=== PATIENT | male | born 1970 | race Caucasian/White ===

== ENCOUNTER 2016-08-26 07:41 | Emergency (ER) | payer MEDICAID ==
[~2016-08-26] VITALS: Ht 180.3 cm; Wt 88.5 kg
[~2016-08-26 07:41] MED LIST: BACTRIM DS 8001 TA1 PO; CIPRO 500MG TA500 MG PO; FLEXERIL10 MG PO; FLOMAX 0.4MG C0.4 MG PO; IBUPROFEN400 MG PO; IBUPROFEN800 MG PO; LODINE400 MG PO; LOMOTIL 0.025 M1 TAB PO; MEDROL 4MG. DOSE4 MG PO; NAPROSYN 500MG500 MG PO; NOMEDS *; NOMEDS XX; PREDNISONE 20MG20 MG PO; PRILOSEC OTC20 MG PO; TESSALON PERLE100 MG PO; ZOFRAN ODT4 MG PO; ZOFRAN4 MG PO
--- NOTE | 2016-08-26 08:11 | Emergency Room Report ---
History of Present Illness Time Seen by MD Redd Presenting Problem in Triage Pt arrived:Walked Presenting Problem:PT REPORTS "MIGRAINE HEADACHE" X2 WEEKS THAT HAS WORSENED THIS MORNING. PT REPORTS PAIN IS MOSTLY ON L SIDE OF HEAD, PT REPORTS NAUSEA. 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 N Clinical Suspician of Infection? N Mental Status: 1 - Regular (Normal Baseline) Sepsis Risk:Low Sepsis Risk Have you (or family members/close friends) recently traveled outside the [place]? N If Yes, where/when: Have you had exposure to infectious disease within the past month? N TB? Other? Specify: Source patient, RN notes reviewed Exam Limitations no limitations Comment Pt comes to the ED with a headache for the past 2 weeks that has gotten progressively worse. Mostly on the left side of his head from the frontal area to the occipital area and says it feels like "someone hitting me in the head with a baseball bat". He has not been running any fever but today he is nauseated and vomiting. He Smokes 1 1/2 ppd but denies ETOH and Drugs off the street. He also is not taking any meds on a regular basis and has no history of hypertension but BP today is 178/112 ...he is afebrile and heart rate is 89 Cardiac Chest Pain Chest pain indicative of cardiac No ALLERGIES Coded Allergies: No Known Allergies (03/22/15) Home Medications Reported Medications No Known Home Medications History Medical History General CAD? No Angina: No DC: No Hypertension? No Hyperlipidemia? No CHF? No DVT? No PE? No COPD? No Asthma? No Anemia? No GERD? No Gastric ulcers? No GI Bleed? No Hernia? No Thyroid Problems? No Hypothyroidism? No CVA? No Seizures? No Diabetes? No Renal Insuffiency? No End Stage Renal Disease? No UTI? No Stones? Yes BPH? No GB Disease: No Nephritic Syndrome? No Asplenia? No Hepatitis? No Sickle Cell Disease? No Arthritis? No Migraines? No Cataracts? No Glaucoma? No MRSA? No HIV? No TB? No Anxiety? No Depression? No Cancer? No More? No Immunization Hx DT/Tetanus 1-4 Years Ago Surgical Hx Previous Surgery?Y HERNIA- ABD RENAL CALCULI EXTRACTION Social History Smoking Hx Smoker: Current Every Day Smoker Tobacco: Yes Type Cigarettes Packs/day < 1 Pack Alcohol Alcohol: Yes Review of Systems All Other Systems Reviewed and Negative Constitutional see HPI Gastrointestinal see HPI Psychiatric/Neurological see HPI, headache Physical Exam Vital Signs Vital Signs Date Time Temp Pulse Resp B/P Pulse O2 O2 Flow FiO2 Ox Delivery Rate 08/26 0902 90 20 147/83 97 08/26 0821 91 20 162/99 97 08/26 0817 20 08/26 0747 97.5 89 18 178/112 96 General Appearance moderate distress Eye Exam - bilateral eye normal exam Ear, Nose, Throat normal ENT inspection Neck supple, but pt complains of pain in neck with movement Respiratory Status No: respiratory distress. Lung Sounds bilateral: normal breath sounds. 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 Yes Silverio was queried for this patient? Yes Reference #: [id number] Results/Orders Laboratory Tests 08/26/16 0810: Sodium 135 L, Potassium 3.4 L, Chloride 100, Carbon Dioxide 29, BUN 12, Creatinine 1.5 H, Estimated Creat Clear 79, Estimated GFR (MDRD) 51, Glucose 107 H, Calcium 9.1, Magnesium 1.9, Total Bilirubin 0.8, AST 22, ALT 15, Alkaline Phosphatase 111, Total Protein 7.4, Albumin 3.7, Globulin 3.7 H, Albumin/Globulin Ratio 1.0 L, WBC 11.4 H, RBC 5.68, Hgb 17.1, Hct 51.1, MCV 89.9, RDW 13.8, Plt Count 309, MPV 6.0 L, Gran % 67.6, Gran # 7.7, Lymphocytes % 20.3, Monocytes % 6.5, Eosinophils % 4.6, Basophils % 1.1, Lymphocytes # 2.3, Monocytes # 0.7, Eosinophils # 0.5 H, Basophils # 0.1, PUBS MCHC 33.4, MCH 30.0 Current Medication Orders Sig/Emelia Start time Last Medication Dose Route Stop Time Status Admin Sodium Chloride 1,000 ML .STK-MED ONE 08/26 0926 DC IV Ceftriaxone Sodium 0 .STK-MED ONE 08/26 0925 DC IV Sodium Chloride 50 ML .STK-MED ONE 08/26 0924 DC IV Diphenhydramine HCl 25 MG ONCE ONE 08/26 0815 DC IV 08/26 0816 Hydralazine HCl 20 MG ONCE ONE 08/26 0815 DC 08/26 IV 08/26 0816 0817 Ketorolac 30 MG ONCE ONE 08/26 0815 DC 08/26 Tromethamine IV 08/26 0816 0817 Ketorolac 0 .STK-MED ONE 08/26 0815 DC Tromethamine .ROUTE Ondansetron HCl 4 MG ONCE ONE 08/26 0815 DC 08/26 IV 08/26 0816 0817 Ondansetron HCl 0 .STK-MED ONE 08/26 0815 DC .ROUTE Sodium Chloride 1,000 ML .Q1H1M 08/26 0815 DC 08/26 IV 08/26 0915 0817 Sodium Chloride 10 ML PRN PRN 08/26 0815 AC IV 08/27 0804 Sodium Chloride 1,000 ML .Q4H 08/26 0815 AC IV 08/26 1214 Sodium Chloride 10 ML PRN PRN 08/26 0815 AC IV 08/27 0804 Sodium Chloride 10 ML PRN PRN 08/26 0815 AC IV 08/27 0813 Sodium Chloride 1,000 ML .STK-MED ONE 08/26 0815 DC IV Hydralazine HCl 0 .STK-MED ONE 08/26 0814 DC .ROUTE Orders Procedure Date/time Status DIET-NOTHING BY MOUTH 08/26 L Active IV SALINE LOCK 08/[address] HEAD REQ 08/26 08 Complete URINALYSIS/COMPLETE 08/26 08 Active MAGNESIUM 08/26 08 Complete LACTIC ACID 08/26 805 Active DRUG ABUSE SCREEN (10) 08/26 08 Active CBC WITH AUTO DIFF 08/26 805 Complete CHEM 12 PROFILE 08/26 805 Complete Departure Departure Time of Disposition 0923 Disposition DC Home or Self Care(routine) Clinical Impression Primary Impression: Acute ethmoidal sinusitis Qualifiers: Recurrence: not specified as recurrent Qualified Code: J01.20 - Acute ethmoidal sinusitis, unspecified Secondary Impressions: Headache Qualifiers: Headache type: unspecified Headache chronicity pattern: acute headache Intractability: not intractable Qualified Code: R51 - Headache Hypertension Qualifiers: Hypertension type: essential hypertension Qualified Code: I10 - Essential (primary) hypertension Condition STABLE Referrals ALBERTO COLLADO (Family): 3 Days-Call Office Patient Instructions DI for Sinus Headache, High Blood Pressure (Hypertension) ( Alternative Therapy), Sinus Headache Additional Instructions Use medicines as directed and keep a record of BP over the next week and followup with PCP to see if you need to start BP meds. Return to the ED as needed. Discharge Counseling Counseled pt/family regarding diagnosis, test results, medications/RX, home care, follow up needs Prescriptions Current Visit Scripts CEFDINIR (Cefdinir) 300 MG PO DAILY #14 CAP Guaifenesin (Mucinex) 600 MG PO BID #40 TAB BUTALB/ACETAMINOPHEN/CAFFEINE (Fioricet 50-300-40 MG Capsule) 1 CAP PO Q4HP PRN headache #30 CAP ED Critical Care Critical Care No If Critical Care minutes are documented, the time involved in the performance of seperately reportable procedures was not counted toward critical care time documented. I directly delivered medical care to this critically ill and/or injured patient. Timely evaluation and treatment was necessary to address the significant organ system(s) dysfunction present in this patient. at 7802
[2016-08-26 08:19] LABS: HEMOGLOBIN 17.1 g/dL (14.1-18.0); LYMPH # 2.3 K/mm3 (0.7-4.5); LYMPH % 20.3 % (10-50)
--- NOTE | 2016-08-26 09:21 | RADIOLOGY REPORT PS360 ---
CT HEAD W/O CONTRAST COMPARISON: None HISTORY: Severe left-sided headache for 2 weeks TECHNIQUE: Multiaxial scans obtained from base skull to the vertex and were performed without IV contrast. FINDINGS: The base of the skull appears normal except for minimal inflammatory changes of the ethmoid sinuses. The ventricular system is normal. There is no ischemic infarct or bleed and there are no extra-axial fluid collections. Bony calvarium appears intact. IMPRESSION: Minor inflammatory changes of the ethmoid sinuses likely acute otherwise negative noncontrast CT scan of brain.
--- NOTE | 2016-08-26 09:21 | RADIOLOGY REPORT PS360 ---
CHEST(2 VIEWS-NOT PORTABLE) COMPARISON: Portable upright chest 02/06/2014 HISTORY: Shortness of breath TECHNIQUE: AP and lateral upright chest in wheelchair FINDINGS: The lung joyner are well expanded and appear clear of infiltrate. The cardiac silhouette and vascularity are normal and the costophrenic angles are clear. IMPRESSION: Negative AP and lateral chest
[2016-08-26] MEDS ORDERED: CEFDINIR 300MG300 MG PO (09:27)
[2016-08-26] MEDS ORDERED: MUCINEX ER600 MG PO (09:27)
[2016-08-26] MEDS ORDERED: FIORICET1 CAP PO (09:27)
[2016-08-26 10:15] VITALS: BP 157/93
== END 2016-08-26 10:15 | disposition home or self-care (01) ==
LOC: ER 07:41
PROVIDERS: General Practice
DX: J01.20 Acute ethmoidal sinusitis, unspecified (principal); R51 Headache; I10 Essential (primary) hypertension; Z72.0 Tobacco use
CPT/HCPCS: J2405

== ENCOUNTER 2016-09-06 19:16 | Emergency (ER) | payer MEDICAID ==
[~2016-09-06] VITALS: Ht 180.3 cm; Wt 88.5 kg
[~2016-09-06 19:16] MED LIST changes: +CEFDINIR 300MG300 MG PO; +FIORICET1 CAP PO; +MUCINEX ER600 MG PO
--- NOTE | 2016-09-06 19:47 | Emergency Room Report ---
History of Present Illness Time Seen by 1924 Presenting Problem in Triage Pt arrived:Walked Presenting Problem:pt states he is having trouble breathing and a headache. 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 Y Clinical Suspician of Infection? N Mental Status: 1 - Regular (Normal Baseline) Sepsis Risk:Possible Sepsis Risk Have you (or family members/close friends) recently traveled outside the [place]? N If Yes, where/when: Have you had exposure to infectious disease within the past month? TB? Other? Specify: Patient seen in ED August 26 with headache for several weeks and sinus congestion, CT of brain showed some inflammatory changes sinuses, neg acute findings. CXR negative. He continues to have a bronchitic cough, worse at night, and is no better on Fioricet and cephalosporin. No elizabeth fever. No vomiting. States cough is worse at night, and keeps him up. He states he feels SOB and that this is worse when he lies down at night, which makes him start coughing uncontrollably, then his head starts to hurt. No syncope or CP, no calf pain. ALLERGIES Coded Allergies: No Known Allergies (03/22/15) Home Medications Active Scripts CEFDINIR (Cefdinir) 300 MG PO DAILY #14 CAP Prov: 08/26/16 BUTALB/ACETAMINOPHEN/CAFFEINE (Fioricet 50-300-40 MG Capsule) 1 CAP PO Q4HP PRN headache #30 CAP Prov: 08/26/16 (Sukh MICHAUD, Elidia De León) History Medical History General CAD? No Angina: No [place]: No Hypertension? No Hyperlipidemia? No CHF? No DVT? No PE? No COPD? No Asthma? No Anemia? No GERD? No Gastric ulcers? No GI Bleed? No Hernia? No Thyroid Problems? No Hypothyroidism? No CVA? No Seizures? No Diabetes? No Renal Insuffiency? No End Stage Renal Disease? No UTI? No Stones? Yes BPH? No GB Disease: No Nephritic Syndrome? No Asplenia? No Hepatitis? No Sickle Cell Disease? No Arthritis? No Migraines? No Cataracts? No Glaucoma? No MRSA? No HIV? No TB? No Anxiety? No Depression? No Cancer? No More? No Immunization Hx DT/Tetanus 1-4 Years Ago Surgical Hx Previous Surgery?Y HERNIA- ABD RENAL CALCULI EXTRACTION Social History Smoking Hx Smoker: Current Every Day Smoker Tobacco: Yes Type Cigarettes Packs/day < 1 Pack Alcohol Alcohol: Yes (Sukh MICHAUD, Elidia De León) Review of Systems All Other Systems Reviewed and Negative Psychiatric/Neurological headache (Elidia Luz MD) Physical Exam Vital Signs Vital Signs Date Time Temp Pulse Resp B/P Pulse O2 O2 Flow FiO2 Ox Delivery Rate 09/06 2042 102 20 157/78 96 09/06 1954 20 09/06 192 99.1 105 20 168/84 96 09/06 1918 99.1 105 20 96 General Appearance normal appearance, WD/WN, no apparent distress Eye Exam - bilateral eye normal exam, bilateral eye PERRL, bilateral eye EOMI Ear, Nose, Throat hearing grossly normal, normal pharynx (no sinus pain), nasal congestion Neck normal inspection, non-tender, supple, full range of motion Respiratory Status Yes: trachea midline, chest symmetrical, non tender chest, non productive cough (bronchitic cough). No: respiratory distress, tender on palpation, use of accessory muscles, pain on inspiration, pain on expiration, productive cough. Lung Sounds bilateral: normal breath sounds, lungs clear. 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 No Results/Orders Laboratory Tests 09/06/162042: Lactic Acid 1.1, Chlamy pneum (TEM-PCR) NOT DETECTED, Adenovirus (PCR) NOT DETECTED, B. pertussis DNA (PCR) NOT DETECTED, Coronavirus OC43 (PCR) NOT DETECTED, Coronavirus HKU1 (PCR) NOT DETECTED, Coronavirus 229E (PCR) NOT DETECTED, Coronavirus NL63 (PCR) NOT DETECTED, Human Metapneumovir PCR NOT DETECTED, Influenza A (H1) PCR NOT DETECTED, Influ A (H1N1/09) PCR NOT DETECTED, Influenza A (H3) PCR NOT DETECTED, Influenza Type A (PCR) NOT DETECTED, Influenza Type B (PCR) NOT DETECTED, M. pneumoniae (PCR) NOT DETECTED, Parainfluenza 1 (PCR) NOT DETECTED, Parainfluenza 2 (PCR) NOT DETECTED, Parainfluenza 3 (PCR) NOT DETECTED, Parainfluenza 4 (PCR) NOT DETECTED, RSV (PCR ) NOT DETECTED, Entero/Rhino (PCR) NOT DETECTED 09/06/16 1950: Sodium 138, Potassium 2.9 *L, Chloride 101, Carbon Dioxide 27, BUN 13, Creatinine 1.6 H, Estimated Creat Clear 74, Estimated GFR (MDRD) 47, Glucose 140 H, Calcium 9.1, Total Bilirubin 0.6, AST 11 L, ALT 12, Alkaline Phosphatase 104, Total Protein 7.1, Albumin 3.1 L, Globulin 4.0 H, Albumin/ Globulin Ratio 0.8 L, WBC 12.7 H, RBC 5.05, Hgb 15.2, Hct 44.9, MCV 88.9, RDW 14.3, Plt Count 324, MPV 6.2 L, Gran % 79.0, Gran # 10.0 H, Lymphocytes % 12.0 , Monocytes % 5.8, Eosinophils % 2.6, Basophils % 0.6, Lymphocytes # 1.5, Monocytes # 0.7, Eosinophils # 0.3, Basophils # 0.1, PUBS MCHC 34.0, MCH 30.2 09/06/161929: Influenza Type A Ag NOT DETECTED, Influenza Type B Ag NOT DETECTED Current Medication Orders Sig/Emelia Start time Last Medication Dose Route Stop Time Status Admin Albuterol/Ipratropium 3 ML ONCE ONE 09/06 2129 DC 09/06 INH 09/06 Albuterol/Ipratropium 0 .STK-MED ONE 09/06 2126 DC INH Sodium Chloride 1,000 ML .STK-MED ONE 09/06 2041 DC IV Levofloxacin/Dextrose 150 ML .STK-MED ONE 09/06 2036 DC IV Potassium Chloride 0 .STK-MED ONE 09/06 2036 DC PO Levofloxacin/Dextrose 150 ML ONCE ONE 09/06 2029 DCr 09/06 IV 09/06 Potassium Chloride 40 MEQ ONCE ONE 09/06 2029 DC 09/06 PO 09/06 Ketorolac 30 MG ONCE ONE 09/07 1999 DC 09/06 Tromethamine IV 09/06 Methylprednisolone 125 MG ONCE ONE 09/07 1999 DC 09/06 Sodium Succinate IV 09/06 Sodium Chloride 1,000 ML .Q1H1M 09/07 1999 DC 09/06 IV 09/06 Sodium Chloride 10 ML PRN PRN 09/07 1999 AC IV 09/07 1953 Methylprednisolone 0 .STK-MED ONE 09/06 1949 DC Sodium Succinate .ROUTE Sodium Chloride 1,000 ML .STK-MED ONE 09/06 1949 DC IV Ketorolac 0 .STK-MED ONE 09/06 1948 DC Tromethamine .ROUTE Sodium Chloride 10 ML PRN PRN 09/06 1944 AC IV 09/07 1938 Orders Procedure Date/time Status DIET-NOTHING BY MOUTH 09/07 B Active RT REQUEST DUONEB 09/07 2115 Active CULTURE, BLOOD 09/06 2026 Active UPPER RESPIRATORY PANEL, PCR 09/06 2026 Complete LACTIC ACID 09/06 2026 Complete IV SALINE LOCK 09/06 1938 Active CBC WITH AUTO DIFF 09/06 1938 Complete CHEM 12 PROFILE 09/06 1938 Complete CHEST(2 VIEWS-NOT PORTABLE) 09/07 1927 Active INFLUENZA A&B ANTIGENS 09/07 1927 Complete LABS/Meds/Orders Silverio was queried for this patient? Yes Reference #: [id number] Comment 1 rx for fioricet. XRAY/CT/US XRAY/CT/US XRAY chest Comment X-ray interpreted by Pablo Alfredo M.D.: bilateral infiltrates. Progress - 8:00 PM: At shift change, patient report received from Dr. Luz, and care of the patient assumed by me at this time. 9:15 PM: Discussed diagnosis with the patient. Discussed disposition. His CURB- 65 pneumonia score is 0. He says he feels well enough to be discharged for outpatient treatment. I advised of the need for close follow-up in 2 days. (Pablo Alfredo MD) Departure Departure Time of Disposition 1953 Disposition Still a Patient Condition STABLE ED Critical Care Critical Care No (Elidia Luz MD) Departure Clinical Impression Primary Impression: Headache Qualifiers: Headache type: primary cough headache Qualified Code: G44.83 - Primary cough headache Secondary Impressions: Community acquired pneumonia, Hypokalemia Patient Instructions DI for Hypokalemia, DI for Pneumonia -- Adult Additional Instructions Off work until Sunday09/12/16. See your primary care physician in 2 days for recheck. Additional instructions for PNEUMONIA: Return immediately if you have an uncontrollable fever greater than 102 degrees, difficulty breathing or shortness of breath, persistent vomiting, or severe chest pain. Prescriptions Current Visit Scripts Levofloxacin (Levaquin 750MG Tab) 750 MG PO DAILY #4 TAB ALBUTEROL (Proventil Hfa Inhaler) 1-2 PUFF IH Q4-6H PRN #1 CAN Ref 1 Benzonatate (Tessalon Perle) 100 MG PO TID #15 SGL Potassium Chloride (K-Dur) 20 MEQ PO BID #20 TER ED Critical Care Critical Care No (Pablo Alfredo MD) at 1959 at 2217
[2016-09-06 19:56] LABS: LYMPH # 1.5 K/mm3 (0.7-4.5)
[2016-09-06 20:02] LABS: HEMOGLOBIN 15.2 g/dL (14.1-18.0)
[2016-09-06 20:49] LABS: CORONAVIRUS 229E NOT DETECTED (NOT DETECTE); CORONAVIRUS HKU 1 NOT DETECTED (NOT DETECTE); CORONAVIRUS NL63 NOT DETECTED (NOT DETECTE); CORONAVIRUS OC43 NOT DETECTED (NOT DETECTE); RHINOVIRUS/ENTEROVIRUS NOT DETECTED (NOT DETECTE)
[2016-09-06] MEDS ORDERED: TESSALON PERLE100 M1 PO (22:15)
[2016-09-06] MEDS ORDERED: PROVENTIL0.09 MG/A1 IH (22:15)
[2016-09-06] MEDS ORDERED: K-DUR 2020 MEQ PO (22:15)
[2016-09-06] MEDS ORDERED: LEVAQUIN750 MG PO (22:15)
[2016-09-06 22:22] VITALS: BP 121/80
--- NOTE | 2016-09-07 19:04 | RADIOLOGY REPORT PS360 ---
CHEST(2 VIEWS-NOT PORTABLE) COMPARISON: PA and lateral chest 08/26/2016 HISTORY: Thirds of breath TECHNIQUE: PA and lateral chest FINDINGS: The lung joyner are well expanded. There are patchy ill-defined pneumonic infiltrates in the perihilar regions and probably left lower lobe. The upper lung joyner are clear. Cardiac size is normal and the vascularity is normal. IMPRESSION: Bilateral perihilar bronchopneumonia with minimal left lower lobe involvement as well
--- OUTSIDE RECORDS SUMMARY | 2016-09-12 08:35 | External Medical Summary Rpt ---
Demographics Preferred Language Greenlandic Marital Status Unknown Denominational Affiliation Unknown Race Unknown Ethnic Group Unknown Author Author , Organization [employer] Address Unknown Phone Unavailable Purpose Continuity of Care Document - through 2016 Immunization No patient found.
--- OUTSIDE RECORDS SUMMARY | 2016-09-12 08:35 | External Medical Summary Rpt ---
Author Author SUE Quinn, [facility] [employer] Organization [facility] [employer] Address Unknown Phone Unavailable Results UPPER RESPIRATORY PANEL,PCR Observa Value Referen Units Interpr Notes Date tion ce etation Range Adenovi NOT NOT No No No September 06 aníbal DNA DETECTE DETECTE informa informa informa 2017 D tion in tion in tion in 8:43 PM [Presen source source source ce] in data data data Unspeci fied specime n by Probe & target amplifi cation method Bordete NOT NOT No No No September 06 lla DETECTE DETECTE informa informa informa 2017 pertuss D tion in tion in tion in 8:43 PM is DNA source source source [Presen data data data ce] in Unspeci fied specime n by Probe & target amplifi cation method Chlamyd NOT NOT No No No September 06 ophila DETECTE DETECTE informa informa informa 2017 pneumon D tion in tion in tion in 8:43 PM iae DNA source source source data data data [Presen ce] in Unspeci fied specime n by Probe & target amplifi cation method SARS NOT NOT No No No September 06 coronav DETECTE DETECTE informa informa informa 2017 irus D tion in tion in tion in 8:43 PM RNA source source source [Presen data data data ce] in Unspeci fied specime n by Probe & target amplifi cation method Human NOT NOT No No No September 06 coronav DETECTE DETECTE informa informa informa 2017 irus D tion in tion in tion in 8:43 PM HKU1 source source source RNA data data data detecti on by SARS NOT NOT No No No September 06 coronav DETECTE DETECTE informa informa informa 2017 irus D tion in tion in tion in 8:43 PM RNA source source source [Presen data data data ce] in Unspeci fied specime n by Probe & target amplifi cation method SARS NOT NOT No No No September 06 coronav DETECTE DETECTE informa informa informa 2017 irus D tion in tion in tion in 8:43 PM RNA source source source [Presen data data data ce] in Unspeci fied specime n by Probe & target amplifi cation method Influen NOT NOT No No No September 06 za DETECTE DETECTE informa informa informa 2017 virus A D tion in tion in tion in 8:43 PM H3 RNA source source source data data data [Presen ce] in Unspeci fied specime n by Probe & target amplifi cation method Influen NOT NOT No No No September 06 za DETECTE DETECTE informa informa informa 2017 virus A D tion in tion in tion in 8:43 PM H1 RNA source source source data data data [Presen ce] in Isolate by Probe & target amplifi cation method Influen NOT NOT No No No September 06 za DETECTE DETECTE informa informa informa 2017 virus A D tion in tion in tion in 8:43 PM H1 RNA source source source data data data [Presen ce] in Unspeci fied specime n by Probe & target amplifi cation method Influen NOT NOT No No No September 06 za DETECTE DETECTE informa informa informa 2017 virus B D tion in tion in tion in 8:43 PM RNA source source source [Presen data data data ce] in Unspeci fied specime n by Probe & target amplifi cation method Influen NOT NOT No No No September 06 za DETECTE DETECTE informa informa informa 2017 virus A D tion in tion in tion in 8:43 PM RNA source source source [Presen data data data ce] in Unspeci fied specime n by Probe & target amplifi cation method Human NOT NOT No No No September 06 metapne DETECTE DETECTE informa informa informa 2017 umoviru D tion in tion in tion in 8:43 PM s Ag source source source [Presen data data data ce] in Unspeci fied specime n Mycopla NOT NOT No No No September 06 sma DETECTE DETECTE informa informa informa 2017 pneumon D tion in tion in tion in 8:43 PM iae DNA source source source data data data [Presen ce] in Unspeci fied specime n by Probe & target amplifi cation method Parainf NOT NOT No No No September 06 luenza DETECTE DETECTE informa informa informa 2017 virus 1 D tion in tion in tion in 8:43 PM RNA source source source [Presen data data data ce] in Unspeci fied specime n by Probe & target amplifi cation method Parainf NOT NOT No No No September 06 luenza DETECTE DETECTE informa informa informa 2017 virus 2 D tion in tion in tion in 8:43 PM RNA source source source [Presen data data data ce] in Unspeci fied specime n by Probe & target amplifi cation method Parainf NOT NOT No No No September 06 luenza DETECTE DETECTE informa informa informa 2017 virus 3 D tion in tion in tion in 8:43 PM RNA source source source [Presen data data data ce] in Unspeci fied specime n by Probe & target amplifi cation method Parainf NOT NOT No No No September 06 luenza DETECTE DETECTE informa informa informa 2017 virus 4 D tion in tion in tion in 8:43 PM RNA source source source [Presen data data data ce] in Isolate by Probe & target amplifi cation method Rhinovi NOT NOT No No No September 06 aníbal+Ent DETECTE DETECTE informa informa informa 2017 eroviru D tion in tion in tion in 8:43 PM s RNA source source source [Presen data data data ce] in Unspeci fied specime n by Probe & target amplifi cation method Respira NOT NOT No No No September 06 tory DETECTE DETECTE informa informa informa 2017 syncyti D tion in tion in tion in 8:43 PM al source source source virus data data data RNA [Presen ce] in Unspeci fied specime n by Probe & target amplifi cation method Lactate [Moles/volume] in Blood Observa Value Referen Units Interpr Notes Date tion ce etation Range Lactate 0.4 - 2.0 mmol/L Normal No September 06 [Moles/vo informati 2017 8:43 lume] in on in PM Blood source data Comprehensive metabolic 2000 panel in Serum or Plasma Observa Value Referen Units Interpr Notes Date tion ce etation Range Albumin/G 1.1 - 1.8 No Low No September 06 lobulin informati informati 2016 7:50 [Mass on in on in PM ratio] in source source Serum or data data Plasma Albumin 3.4 - 5.0 gm/dL Low No September 06 [Mass/vol informati 2016 7:50 ume] in on in PM Serum or source Plasma data Alkaline 46 - 116 U/L Normal No September 06 phosphata informati 2016 7:50 se on in PM [Enzymati source c data activity/ volume] in Serum or Plasma Bilirubin 0.2 - 1.0 mg/dL Normal No September 06 .total informati 2016 7:50 [Mass/vol on in PM ume] in source Serum or data Plasma Urea 7 - 18 mg/dL Normal No September 06 nitrogen informati 2016 7:50 [Mass/vol on in PM ume] in source Serum or data Plasma Calcium 8.5 - mg/dL Normal No September 06 [Mass/vol 10.1 informati 2016 7:50 ume] in on in PM Serum or source Plasma data Chloride 98 - 107 mmoL/L Normal No September 06 [Moles/vo informati 2016 7:50 lume] in on in PM Serum or source Plasma data Carbon 21.0 - mmoL/L Normal No September 06 dioxide, 32.0 informati 2017 7:50 total on in PM [Moles/vo source lume] in data Serum or Plasma Creatinin 0.70 - mg/dL High No September 06 e 1.30 informati 2016 7:50 [Mass/vol on in PM ume] in source Serum or data Plasma Creatinin 50 - 200 ML/MIN Normal No September 06 e renal informati 2016 7:50 clearance on in PM source predicted data by Cockcroft -Gault formula Estimated >60 ML/MIN No REFERENCE September 06 informati RANGE: 2017 7:50 glomerula on in >60 PM r source ML/MIN/1. filtratio data 73 SQUARE n rate METERSIf (GF this patient is -A merican, then multiply theresult by 1.210. Globulin 1.3 - 3.2 gm/dL High No September 06 [Mass/vol informati 2016 7:50 ume] in on in PM Serum source data Glucose 74 - 106 mg/dL High No September 06 [Mass/vol informati 2016 7:50 ume] in on in PM Serum or source Plasma data Potassium 3.5 - 5.1 mmoL/L Low alert September 06 2016 7:50 [Moles/vo CRITICAL PM lume] in RESULTS Serum or Plasma RESU LTS CALLED TO: LEWIS Sarthak 09/06/162008 Adeola Kebede Sodium 136 - 145 mmoL/L Normal No September 06 [Moles/vo informati 2016 7:50 lume] in on in PM Serum or source Plasma data Aspartate 15 - 37 U/L Low No September 06 informati 2016 7:50 aminotran on in PM sferase source [Enzymati data c activity/ volume] in Serum or Plasma Alanine 12 - 78 U/L Normal No September 06 aminotran informati 2016 7:50 sferase on in PM [Enzymati source c data activity/ volume] in Serum or Plasma Protein 6.4 - 8.2 gm/dL Normal No September 06 [Mass/vol informati 2016 7:50 ume] in on in PM Serum or source Plasma data CBC W Auto Differential panel in Blood Observa Value Referen Units Interpr Notes Date tion ce etation Range Basophils 0 - 0.2 K/MM3 Normal No September 06 informati 2016 7:50 [#/volume on in PM ] in source Blood by data Automated count Basophils 0.1 - 2.0 % Normal No September 06 informati 2016 7:50 leukocyte on in PM s in source Blood by data Automated count Eosinophi 0.0 - 0.4 K/mm3 Normal No September 06 ls informati 2016 7:50 [#/volume on in PM ] in source Blood by data Automated count Eosinophi 0.1 - % Normal No September 06 ls/100 12.0 informati 2016 7:50 leukocyte on in PM s in source Blood by data Automated count Granulocy 1.3 - 8.0 K/mm3 High No September 06 lala informati 2016 7:50 [#/volume on in PM ] in source Blood by data Automated count Granulocy 37.0 - % Normal No September 06 lala/100 80.0 informati 2016 7:50 leukocyte on in PM s in source Blood by data Automated count Hematocri 42.0 - % Normal No September 06 t [Volume 52.0 informati 2016 7:50 on in PM Fraction] source of Blood data Hemoglobi 14.1 - g/dL No No September 06 n 18.0 informati informati 2016 7:50 [Mass/vol on in on in PM ume] in source source Blood data data Lymphocyt 0.7 - 4.5 K/mm3 Normal No September 06 es informati 2016 7:50 [#/volume on in PM ] in source Unspecifi data ed specimen by Automated count Lymphocyt 10 - 50 % Normal No September 06 es informati 2016 7:50 [#/volume on in PM ] in source Unspecifi data ed specimen by Automated count Erythrocy 27 - 31.2 pg Normal No September 06 te mean informati 2016 7:50 corpuscul on in PM ar source hemoglobi data n [Entitic mass] Erythrocy 31.8 - g/dl Normal No September 06 te mean 35.4 informati 2016 7:50 corpuscul on in PM ar source hemoglobi data n concentra tion [Mass/vol ume] by Automated count Erythrocy 82.2 - fl Normal No September 06 te mean 97.8 informati 2016 7:50 corpuscul on in PM ar volume source [Entitic data volume] by Automated count Monocytes 0.1 - 1.0 K/mm3 Normal No September 06 informati 2016 7:50 [#/volume on in PM ] in source Blood by data Automated count Monocytes 1.7 - 9.3 % Normal No September 06 /100 informati 2016 7:50 leukocyte on in PM s in source Blood by data Automated count Platelet 7.4 - fl Low No September 06 mean 10.4 informati 2016 7:50 volume on in PM [Entitic source volume] data in Blood by Automated count Platelets 142 - 424 K/mm3 Normal No September 06 informati 2016 7:50 [#/volume on in PM ] in source Blood data Erythrocy 4.6 - 6.2 M/mm3 Normal No September 06 lala informati 2016 7:50 [#/volume on in PM ] in source Amniotic data fluid Erythrocy 11.5 - % Normal No September 06 te 17.5 informati 2016 7:50 distribut on in PM ion width source [Entitic data volume] by Automated count Leukocyte 4.8 - K/MM3 High No September 06 s 10.8 informati 2017 7:50 [#/volume on in PM ] in source Blood data Influenza virus A+B Ag [Presence] in Unspecified specimen Observa Value Referen Units Interpr Notes Date tion ce etation Range Influen NOT NOT No No No September 06 za DETECTE DETECTD informa informa informa 2017 virus A D tion in tion in tion in 7:30 PM Ag source source source [Presen data data data ce] in Unspeci fied specime n Influen NOT NOT No No No September 06 za DETECTE DETECTD informa informa informa 2017 virus B D tion in tion in tion in 7:30 PM Ag source source source [Presen data data data ce] in Unspeci fied specime n
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
--- OUTSIDE RECORDS SUMMARY | 2016-09-12 08:35 | External Medical Summary Rpt ---
Demographics Preferred Language Estonian Marital Status Unknown Protestant Affiliation Unknown Race Unknown Ethnic Group Unknown Author Author , Organization [employer] Address Unknown Phone Unavailable Purpose Continuity of Care Document - through 2016 Immunization No patient found.
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
== END 2016-09-06 22:23 | disposition still patient (30) ==
LOC: ER 19:16
PROVIDERS: Emergency Medicine
DX: G44.83 Primary cough headache (principal); J18.9 Pneumonia, unspecified organism; E87.6 Hypokalemia; Z72.0 Tobacco use

== ENCOUNTER 2016-10-18 12:41 | Emergency (ER) | payer MEDICAID ==
[~2016-10-18] VITALS: Ht 180.3 cm; Wt 74.8 kg
[~2016-10-18 12:41] MED LIST changes: +K-DUR 2020 MEQ PO; +LEVAQUIN750 MG PO; +PROVENTIL0.09 MG/A1 IH; +TESSALON PERLE100 M1 PO
[2016-10-18] MEDS ORDERED: AMLODIPINE BES10 MG PO (12:52)
[2016-10-18] MEDS ORDERED: ASPIRIN ADULT L81 M2 PO (12:52)
[2016-10-18] MEDS ORDERED: CARVEDILOL6.25 M1 PO (12:52)
--- NOTE | 2016-10-18 12:58 | Emergency Room Report ---
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 STATES HE TOOK ONE TYLENOL. DOES NOT LIKE TO TAKE TWO. PT BEGAN VOMITING UPON ARRIVAL. 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 N Clinical Suspician of Infection? N Mental Status: 1 - Regular (Normal Baseline) Sepsis Risk: Have you (or family members/close friends) recently traveled outside the [place]? N If Yes, where/when: Have you had exposure to infectious disease within the past month? TB? Other? Specify: Comment The patient arrives by ambulance complaining of a migraine headache. He had onset of a RIGHT sided headache at about 10 AM, gradually worsening throughout the day. He has had an episode of vomiting after arriving in the emergency department. He has blurry vision and photophobia. He says the pain is on top of his head and right lateral head and behind right eye. He says he was diagnosed with migraines about a month ago. He had a constant headache for 3 wks at that time. His reports that he was admitted here for that headache and pneumonia and discharged after a day. He then had a syncopal episode and was admitted to [facility] where he was diagnosed with double pneumonia and a "heart attack". She says he did not get a cardiac cath or angiogram. She says that he had a follow-up stress test as well. She says that his marketing performance analyst diagnosed him with migraines at that time. He had had persistent headaches at that point for about 3 weeks. Review of his records here shows that he also had a CT scan of his head done here and was diagnosed with sinusitis. The patient states he was feeling fine before his headache began today. He says headache was initially a 5/10, but increased throughout the day so that it is now 20/10. His primary care physician is Dr. Thompson, his marketing performance analyst is Dr. Petit at [facility]. ALLERGIES Coded Allergies: No Known Allergies (03/22/15) Home Medications Active Scripts BUTALB/ACETAMINOPHEN/CAFFEINE (Fioricet 50-300-40 MG Capsule) 1 CAP PO Q4HP PRN headache #30 CAP Prov: 08/26/16 Reported Medications Amlodipine Besylate (Amlodipine Besylate) 10 MG PO DAILY #30 Carvedilol 6.25 MG PO DAILY #60 Aspirin 81 MG PO DAILY #30 History Medical History General CAD? No Angina: No [place]: Yes Hypertension? Yes Hyperlipidemia? No CHF? No DVT? No PE? No COPD? No Asthma? No Anemia? No GERD? No Gastric ulcers? No GI Bleed? No Hernia? No Thyroid Problems? No Hypothyroidism? No CVA? No Seizures? No Diabetes? No Renal Insuffiency? No End Stage Renal Disease? No UTI? No Stones? Yes BPH? No GB Disease: No Nephritic Syndrome? No Asplenia? No Hepatitis? No Sickle Cell Disease? No Arthritis? No Migraines? No Cataracts? No Glaucoma? No MRSA? No HIV? No TB? No Anxiety? No Depression? No Cancer? No More? No Immunization Hx DT/Tetanus 1-4 Years Ago Surgical Hx Previous Surgery?Y HERNIA- ABD RENAL CALCULI EXTRACTION Social History Smoking Hx Smoker: Never Smoker Tobacco: No Packs/day < 1 Pack Alcohol Alcohol: Yes Review of Systems All Other Systems Reviewed and Negative Constitutional denies fever Eyes see HPI Gastrointestinal vomiting Psychiatric/Neurological headache Physical Exam Vital Signs Vital Signs Date Time Temp Pulse Resp B/P Pulse O2 O2 Flow FiO2 Ox Delivery Rate 10/18 1854 89 20 170/100 98 10/18 1833 89 20 166/106 97 10/18 1748 97.5 89 20 169/96 97 10/18 1717 20 10/18 1709 75 18 160/110 96 10/18 1447 20 10/18 1442 97.5 98 18 204/111 97 10/18 1329 20 10/18 1243 97.5 95 20 192/110 98 General Appearance moderate distress, rates headache 20/10, anxious and uncomfortable Eye Exam - bilateral eye normal exam, bilateral eye PERRL, bilateral eye EOMI Comment no pupillary dilitation or injection of the sclera Ear, Nose, Throat hearing grossly normal, normal ENT inspection, bilateral cerumen impactions Neck normal inspection, non-tender, supple, full range of motion Respiratory Status Yes: trachea midline, chest symmetrical, non tender chest. No: respiratory distress. Lung Sounds bilateral: normal breath sounds, lungs clear. Cardiovascular normal exam, regular rate/rhythm, no peripheral edema, no gallop, no JVD, no murmur, no rub, normal peripheral pulses Peripheral Pulses Pulses normal Yes Gastrointestinal normal bowel sounds, normal exam, non tender, soft, no organomegaly Extremities normal range of motion, normal inspection Neurologic alert, manager analytical II-XII nml as tested, normal exam, no motor/sensory deficits, oriented x 3 Mental status anxious Skin intact, normal color, warm/dry Medical Decision Making LABS/Meds/Orders Pt receiving controlled substance in ED? Yes Silverio was queried for this patient? No Reason not queried - emergent pt cond=no time Results/Orders Laboratory Tests 10/18/16 1250: Sodium 138, Potassium 3.2 L, Chloride 97 L, Carbon Dioxide 29, BUN 14, Creatinine 1.3, Estimated Creat Clear 77, Estimated GFR (MDRD) 60, Glucose 110 H, Calcium 10.3 H, Total Bilirubin 0.7, AST 19, ALT 13, Alkaline Phosphatase 182 H, Total Protein 8.4 H, Albumin 4.0, Globulin 4.4 H, Albumin/Globulin Ratio 0.9 L, WBC 16.2 H, RBC 5.72, Hgb 16.9, Hct 49.9, MCV 87.2, RDW 14.7, Plt Count 308, MPV 7.3 L, Gran % 84.4 H, Gran # 13.7 H, Total Counted 100, Lymphocytes % 9.3 L, Monocytes % 5.0, Eosinophils % 0.6, Basophils % 0.6, Neutrophils 78 H, Lymphocytes (Manual) 15, Lymphocytes # 1.5, Monocytes (Manual ) 3, Monocytes # 0.8, Eosinophils # 0.1, Basophils # 0.1, Basophils # (Manual) 3 H, Metamyelocytes 1, Platelet Estimate NORMAL, PUBS MCHC 33.8, MCH 29.4 Current Medication Orders Sig/Emelia Start time Last Medication Dose Route Stop Time Status Admin Clonidine HCl 0.2 MG ONCE ONE 10/18 1744 DC 10/18 PO 10/18 1746 1740 Clonidine HCl 0 .STK-MED ONE 10/18 1737 DC .ROUTE Hydromorphone HCl 0 .STK-MED ONE 10/18 1603 DC .ROUTE Hydromorphone HCl 1 MG ONCE ONE 10/18 1530 DC 07/ IV 10/18 1531 1717 Hydromorphone HCl 1 MG ONCE ONE 10/18 1445 DC 07/05 IV 10/18 1446 1447 Hydromorphone HCl 0 .STK-MED ONE 10/18 1445 DC .ROUTE Ketorolac 15 MG ONCE ONE 10/18 1330 DC 07 Tromethamine IV 10/18 1331 1329 Diphenhydramine HCl 0 .STK-MED ONE 10/18 1327 DC .ROUTE Ketorolac 0 .STK-MED ONE 10/18 1327 DC Tromethamine .ROUTE Metoclopramide HCl 0 .STK-MED ONE 10/18 1326 DC .ROUTE Diphenhydramine HCl 25 MG ONCE ONE 10/18 1315 DC 07/ IV 10/18 1316 1329 Metoclopramide HCl 10 MG ONCE ONE 10/18 1315 DC 10/18 IVP 10/18 1316 1328 Ondansetron HCl 4 MG ONCE ONE 10/18 1300 DC 07/05 IV 10/18 1301 1255 Sodium Chloride 10 ML PRN PRN 10/18 1300 DCD IV 10/19 1253 Sodium Chloride 1,000 ML .Q1H1M 10/18 1300 DC 07/05 IV 10/18 1400 1254 Sodium Chloride 10 ML PRN PRN 05 1300 DCD IV 10/19 1253 Orders Procedure Date/time Status DIET-NOTHING BY MOUTH 10/18 D Active CBC WITH AUTO DIFF 10/18 1313 Complete CHEM 12 PROFILE 10/[address] HEAD REQ 10/18 1257 Complete IV SALINE LOCK 10/18 1254 Active DIFFERENTIAL-WBC 10/18 1250 Complete XRAY/CT/US XRAY/CT/US CT head Comment CT scan interpreted by radiologist: No acute intracranial pathology. Occluded bilateral external auditory canals. Progress - 2:30 PM: Recheck patient, he states no change in pain. 3:25 PM: Patient states improved after Dilaudid. Appears comfortable. Initially stated he did not need more pain medication but then stated he still has pain and would like another dose. 5:00 PM: Patient improved, but states still has a headache, does not feel well enough to go home. He requests transfer to [facility]. requests same. Blood pressure remains elevated, family is very concerned about this. Family states "it's been that way for a month and he can't live that way". 5:45 PM: Case discussed with Dr. Wyatt, hospitalist at [facility] who accepts the patient. Departure Departure Disposition DC/[facility]FER [facility] Clinical Impression Primary Impression: Intractable headache Qualifiers: Headache type: unspecified Headache chronicity pattern: acute headache Qualified Code: R51 - Headache Secondary Impressions: Hypertension, uncontrolled Condition STABLE Referrals RUPERTO EGAN (PCP/Family) ED Critical Care Critical Care No at 2000
--- NOTE | 2016-10-18 12:58 | Emergency Room Report ---
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 STATES HE TOOK ONE TYLENOL. DOES NOT LIKE TO TAKE TWO. PT BEGAN VOMITING UPON ARRIVAL. 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 N Clinical Suspician of Infection? N Mental Status: 1 - Regular (Normal Baseline) Sepsis Risk: Have you (or family members/close friends) recently traveled outside the [place]? N If Yes, where/when: Have you had exposure to infectious disease within the past month? TB? Other? Specify: Comment The patient arrives by ambulance complaining of a migraine headache. He had onset of a RIGHT sided headache at about 10 AM, gradually worsening throughout the day. He has had an episode of vomiting after arriving in the emergency department. He has blurry vision and photophobia. He says the pain is on top of his head and right lateral head and behind right eye. He says he was diagnosed with migraines about a month ago. He had a constant headache for 3 wks at that time. His reports that he was admitted here for that headache and pneumonia and discharged after a day. He then had a syncopal episode and was admitted to [facility] where he was diagnosed with double pneumonia and a "heart attack". She says he did not get a cardiac cath or angiogram. She says that he had a follow-up stress test as well. She says that his negotiations director diagnosed him with migraines at that time. He had had persistent headaches at that point for about 3 weeks. Review of his records here shows that he also had a CT scan of his head done here and was diagnosed with sinusitis. The patient states he was feeling fine before his headache began today. He says headache was initially a 5/10, but increased throughout the day so that it is now 20/10. His primary care physician is Dr. Thompson, his negotiations director is Dr. Petit at [facility]. ALLERGIES Coded Allergies: No Known Allergies (03/22/15) Home Medications Active Scripts BUTALB/ACETAMINOPHEN/CAFFEINE (Fioricet 50-300-40 MG Capsule) 1 CAP PO Q4HP PRN headache #30 CAP Prov: 08/26/16 Reported Medications Amlodipine Besylate (Amlodipine Besylate) 10 MG PO DAILY #30 Carvedilol 6.25 MG PO DAILY #60 Aspirin 81 MG PO DAILY #30 History Medical History General CAD? No Angina: No [place]: Yes Hypertension? Yes Hyperlipidemia? No CHF? No DVT? No PE? No COPD? No Asthma? No Anemia? No GERD? No Gastric ulcers? No GI Bleed? No Hernia? No Thyroid Problems? No Hypothyroidism? No CVA? No Seizures? No Diabetes? No Renal Insuffiency? No End Stage Renal Disease? No UTI? No Stones? Yes BPH? No GB Disease: No Nephritic Syndrome? No Asplenia? No Hepatitis? No Sickle Cell Disease? No Arthritis? No Migraines? No Cataracts? No Glaucoma? No MRSA? No HIV? No TB? No Anxiety? No Depression? No Cancer? No More? No Immunization Hx DT/Tetanus 1-4 Years Ago Surgical Hx Previous Surgery?Y HERNIA- ABD RENAL CALCULI EXTRACTION Social History Smoking Hx Smoker: Never Smoker Tobacco: No Packs/day < 1 Pack Alcohol Alcohol: Yes Review of Systems All Other Systems Reviewed and Negative Constitutional denies fever Eyes see HPI Gastrointestinal vomiting Psychiatric/Neurological headache Physical Exam Vital Signs Vital Signs Date Time Temp Pulse Resp B/P Pulse O2 O2 Flow FiO2 Ox Delivery Rate 10/18 1854 89 20 170/100 98 10/18 1833 89 20 166/106 97 10/18 1748 97.5 89 20 169/96 97 10/18 1717 20 10/18 1709 75 18 160/110 96 10/18 1447 20 10/18 1442 97.5 98 18 204/111 97 10/18 1329 20 10/18 1243 97.5 95 20 192/110 98 General Appearance moderate distress, rates headache 20/10, anxious and uncomfortable Eye Exam - bilateral eye normal exam, bilateral eye PERRL, bilateral eye EOMI Comment no pupillary dilitation or injection of the sclera Ear, Nose, Throat hearing grossly normal, normal ENT inspection, bilateral cerumen impactions Neck normal inspection, non-tender, supple, full range of motion Respiratory Status Yes: trachea midline, chest symmetrical, non tender chest. No: respiratory distress. Lung Sounds bilateral: normal breath sounds, lungs clear. 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 Yes Silverio was queried for this patient? No Reason not queried - emergent pt cond=no time Results/Orders Laboratory Tests 10/18/16 1250: Sodium 138, Potassium 3.2 L, Chloride 97 L, Carbon Dioxide 29, BUN 14, Creatinine 1.3, Estimated Creat Clear 77, Estimated GFR (MDRD) 60, Glucose 110 H, Calcium 10.3 H, Total Bilirubin 0.7, AST 19, ALT 13, Alkaline Phosphatase 182 H, Total Protein 8.4 H, Albumin 4.0, Globulin 4.4 H, Albumin/Globulin Ratio 0.9 L, WBC 16.2 H, RBC 5.72, Hgb 16.9, Hct 49.9, MCV 87.2, RDW 14.7, Plt Count 308, MPV 7.3 L, Gran % 84.4 H, Gran # 13.7 H, Total Counted 100, Lymphocytes % 9.3 L, Monocytes % 5.0, Eosinophils % 0.6, Basophils % 0.6, Neutrophils 78 H, Lymphocytes (Manual) 15, Lymphocytes # 1.5, Monocytes (Manual ) 3, Monocytes # 0.8, Eosinophils # 0.1, Basophils # 0.1, Basophils # (Manual) 3 H, Metamyelocytes 1, Platelet Estimate NORMAL, PUBS MCHC 33.8, MCH 29.4 Current Medication Orders Sig/Emelia Start time Last Medication Dose Route Stop Time Status Admin Clonidine HCl 0.2 MG ONCE ONE 10/18 1744 DC 10/18 PO 10/18 1746 1740 Clonidine HCl 0 .STK-MED ONE 10/18 1737 DC .ROUTE Hydromorphone HCl 0 .STK-MED ONE 10/18 1603 DC .ROUTE Hydromorphone HCl 1 MG ONCE ONE 10/18 1530 DC 07/ IV 10/18 1531 1717 Hydromorphone HCl 1 MG ONCE ONE 10/18 1445 DC 07/05 IV 10/18 1446 1447 Hydromorphone HCl 0 .STK-MED ONE 10/18 1445 DC .ROUTE Ketorolac 15 MG ONCE ONE 10/18 1330 DC 07 Tromethamine IV 10/18 1331 1329 Diphenhydramine HCl 0 .STK-MED ONE 10/18 1327 DC .ROUTE Ketorolac 0 .STK-MED ONE 10/18 1327 DC Tromethamine .ROUTE Metoclopramide HCl 0 .STK-MED ONE 10/18 1326 DC .ROUTE Diphenhydramine HCl 25 MG ONCE ONE 10/18 1315 DC 07/ IV 10/18 1316 1329 Metoclopramide HCl 10 MG ONCE ONE 10/18 1315 DC 10/18 IVP 10/18 1316 1328 Ondansetron HCl 4 MG ONCE ONE 10/18 1300 DC 07/05 IV 10/18 1301 1255 Sodium Chloride 10 ML PRN PRN 10/18 1300 DCD IV 10/19 1253 Sodium Chloride 1,000 ML .Q1H1M 10/18 1300 DC 07/05 IV 10/18 1400 1254 Sodium Chloride 10 ML PRN PRN 05 1300 DCD IV 10/19 1253 Orders Procedure Date/time Status DIET-NOTHING BY MOUTH 10/18 D Active CBC WITH AUTO DIFF 10/18 1313 Complete CHEM 12 PROFILE 10/[address] HEAD REQ 10/18 1257 Complete IV SALINE LOCK 10/18 1254 Active DIFFERENTIAL-WBC 10/18 1250 Complete XRAY/CT/US XRAY/CT/US CT head Comment CT scan interpreted by radiologist: No acute intracranial pathology. Occluded bilateral external auditory canals. Progress - 2:30 PM: Recheck patient, he states no change in pain. 3:25 PM: Patient states improved after Dilaudid. Appears comfortable. Initially stated he did not need more pain medication but then stated he still has pain and would like another dose. 5:00 PM: Patient improved, but states still has a headache, does not feel well enough to go home. He requests transfer to [facility]. requests same. Blood pressure remains elevated, family is very concerned about this. Family states "it's been that way for a month and he can't live that way". 5:45 PM: Case discussed with Dr. Wyatt, hospitalist at [facility] who accepts the patient. Departure Departure Disposition DC/[facility]FER [facility] to [facility] Clinical Impression Primary Impression: Intractable headache Qualifiers: Headache type: unspecified Headache chronicity pattern: acute headache Qualified Code: R51 - Headache Secondary Impressions: Hypertension, uncontrolled Condition STABLE Referrals RUPERTO EGAN (PCP/Family) ED Critical Care Critical Care No at 2000
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
--- OUTSIDE RECORDS SUMMARY | 2016-10-18 13:11 | External Medical Summary Rpt ---
Author Author CATINARAMESH Quinn, SUE Mumart Organization [employer] Address Unknown Phone Unavailable Results Glyco Observa Value Referen Units Interpr Notes Date tion ce etation Range Hemoglo 5.8 <=7.0 % No Referen Brian 6 bin informa ce 2017 A1c/Hem tion in Interva 4:59 PM oglobin source l for .total data Hgb in A1c\.br Blood \\.br\H gb A1c Interpr etation \.br\-- ------- -- ------- ------- --\.br\ \.br\ < 6.0 Non-Catherine betic Range\. br\6.0 - 7.0 ADA Therape utic Target\ .br\ > 7.0 Action suggest ed Diff Observa Value Referen Units Interpr Notes Date tion ce etation Range Neutrop 5 0 - 10 % No No Brian 6 hils.ba informa informa 2017 nd tion in tion in 4:14 PM form/10 source source 0 data data leukocy jenni in Blood by Manual count [place] 1 No % No No Sep 19 informa informa informa 2017 tion in tion in tion in 4:14 PM source source source data data data Myelo 2 No % No No Sep 19 informa informa informa 2017 tion in tion in tion in 4:14 PM source source source data data data RBC Normal No No No No Brian 6 Morph informa informa informa informa 2017 tion in tion in tion in tion in 4:14 PM source source source source data data data data Auto Diff Observa Value Referen Units Interpr Notes Date tion ce etation Range Neutrop 74.3 No % No No Brian 6 hils informa informa informa 2017 [#/volu tion in tion in tion in 4:14 PM me] in source source source Blood data data data by Automat ed count Lymphoc 11.6 No % No No Brian 6 ytes informa informa informa 2017 [#/volu tion in tion in tion in 4:14 PM me] in source source source Blood data data data by Automat ed count Monocyt 11.7 No % No No Brian 6 es informa informa informa 2017 [#/volu tion in tion in tion in 4:14 PM me] in source source source Blood data data data by Automat ed count Eos 2.1 No % No No Brian 6 Percent informa informa informa 2017 tion in tion in tion in 4:14 PM source source source data data data Baso 0.3 No % No No Brian 6 Percent informa informa informa 2017 tion in tion in tion in 4:14 PM source source source data data data Neut# 16.3 1.8 - x10(3)/ High No Brian 6 7.7 mcL informa 2017 tion in 4:14 PM source data Lymph# 2.6 0.6 - x10(3)/ No No Brian 6 4.8 mcL informa informa 2017 tion in tion in 4:14 PM source source data data [place]# 2.6 0.0 - x10(3)/ High No Brian 6 1.3 mcL informa 2017 tion in 4:14 PM source data Eos# 0.5 0.0 - x10(3)/ No No Brian 6 0.5 mcL informa informa 2017 tion in tion in 4:14 PM source source data data Baso# 0.1 0.0 - x10(3)/ No No Brian 6 0.2 mcL informa informa 2017 tion in tion in 4:14 PM source source data data CBC Observa Value Referen Units Interpr Notes Date tion ce etation Range LEUKOCY 22.0 4.0 - x10(3)/ High No Brian 6 JENNI 11.0 mcL informa 2017 tion in 4:14 PM source data Erythro 5.24 4.30 - x10(6)/ No No Brian 6 cytes 5.81 mcL informa informa 2017 [#/volu tion in tion in 4:14 PM me] in source source Blood data data by Automat ed count Hemoglo 15.4 13.5 - gm/dL No No Brian 6 bin 17.1 informa informa 2017 [Mass/v tion in tion in 4:14 PM olume] source source in data data Blood Hematoc 46.9 38.9 - % No No Sep 19 rit 51.6 informa informa 2017 [Volume tion in tion in 4:14 PM source source Fractio data data n] of Blood by Automat ed count Erythro 89.6 82.5 - fL No No Sep 19 cyte 99.8 informa informa 2017 mean tion in tion in 4:14 PM corpusc source source ular data data volume [Entiti c volume] by Automat ed count Erythro 29.4 27.0 - pg No No Sep 19 cyte 34.3 informa informa 2017 mean tion in tion in 4:14 PM corpusc source source ular data data hemoglo bin [Entiti c mass] by Automat ed count Erythro 32.8 32.1 - gm/dL No No Sep 19 cyte 35.3 informa informa 2017 mean tion in tion in 4:14 PM corpusc source source ular data data hemoglo bin concent ration [Mass/v olume] by Automat ed count Erythro 14.9 11.5 - % No No Sep 19 cyte 15.0 informa informa 2017 distrib tion in tion in 4:14 PM ution source source width data data [Ratio] by Automat ed count Platele 378 144 - x10(3)/ No No Sep 19 ts 423 mcL informa informa 2016 [#/volu tion in tion in 4:14 PM me] in source source Blood data data by Automat ed count MPV 7.8 6.8 - fL No No Sep 19 10.8 informa informa 2017 tion in tion in 4:14 PM source source data data Lipid Scr Observa Value Referen Units Interpr Notes Date tion ce etation Range Cholest 203 <=200 mg/dL High < 200 Sep 19 pari 2017 [Percen 3:38 PM tile] Desirab le\.br\ 200 - 239 Borderl ine High\.b r\>= 240 High TRIGLYC 255 <=150 mg/dL High < 150 Brian 6 ERIDES. 2017 TOTAL Normal\ 3:38 PM .br\150 - 199 Borderl ine High\.b r\200 - 499 High\.b r\ >= 500 Very High CHOLEST 47 >=40 mg/dL No > 60 Sep 19 EROLS.I informa 2017 N HDL tion in Optimal 3:38 PM source \.br\40 data - 60 Accepta ble\.br \ < 40 Low LDL 105 <=100 mg/dL High < 100 Sep 19 Calcula 2017 byron 3:38 PM Optimal \.br\10 0 - 129 Near or above optimal \.br\13 0 - 159 Borderl ine High\.b r\160 - 189 High\.b r\ >= 190 Very High UPPER RESPIRATORY PANEL,PCR Observa Value Referen Units [...] 06 coronav DETECTE DETECTE informa informa informa 2016 irus D tion in tion in tion in 8:43 PM RNA source source source [Presen data data data ce] in Unspeci fied specime n by Probe & target amplifi cation method Human NOT NOT No No No September 06 coronav DETECTE DETECTE informa informa informa 2016 irus D tion in tion in tion in 8:43 PM HKU1 source source source RNA data data data detecti on by SARS NOT NOT No No No September 06 coronav DETECTE DETECTE informa informa informa 2016 irus D tion in tion in tion [...] method Parainf NOT NOT No No No August 24 luenza DETECTE DETECTE informa informa informa 2017 virus 1 D tion in tion in tion in 8:43 PM RNA source source source [Presen data data data ce] in Unspeci fied specime n by Probe & target amplifi cation method Parainf NOT NOT No No No August 24 luenza DETECTE DETECTE informa informa informa 2017 [...] Normal No September 06 dioxide, 32.0 informati 2016 7:50 total on in PM [Moles/vo source [...] Serum or Plasma RESU LTS CALLED TO: ELWIS De León 09/06/16 Adeola Martinez Sodium 136 - 145 mmoL/L Normal No September 06 [Moles/vo informati 2017 7:50 lume] in on in PM Serum [...] - 8.0 K/mm3 High No September 06 jenni informati 2016 7:50 [#/volume on in PM ] in source Blood by data Automated count Granulocy 37.0 - % Normal No September 06 [email or web address] 80.0 informati 2017 7:50 leukocyte on in PM s in [...] - 9.3 % Normal No September 06 / informati 2016 7:50 leukocyte on in PM [...] - 6.2 M/mm3 Normal No September 06 jenni informati 2016 7:50 [#/volume on in PM [...]
--- OUTSIDE RECORDS SUMMARY | 2016-10-18 13:11 | External Medical Summary Rpt ---
Demographics Preferred Language Citizen Of [place] Marital Status Unknown Oriental Orthodox Affiliation Unknown Race Unknown Ethnic Group Unknown Author Author , Organization [employer] Address Unknown Phone Unavailable Purpose Continuity of Care Document - through 2016 Immunization No patient found.
--- OUTSIDE RECORDS SUMMARY | 2016-10-18 13:11 | External Medical Summary Rpt ---
Author Author , Organization [employer] Address Unknown Phone Unavailable Care Team Providers Care [employer] Processor Name Role Phone HARDING BRO, HARDING Unavailable Unavailable BRO BEINEKE, BEINEKE Unavailable Unavailable BEINEKE MARTIN, BEINEKE Unavailable Unavailable MARTIN JOY ALL, JOY ALL Unavailable Unavailable CELLAROSI - YORBA, Unavailable Unavailable CELLAROSI - YORBA OXANA LESA, Unavailable Unavailable OXANA LESA DO JACQUELYN, DO Unavailable Unavailable JACQUELYN JONES Unavailable Unavailable [facility]ARDIOLOG[facility], [facility] Unavailable [facility]available [facility] Unavailable Unavailable INC, [facility], Unavailable Unavailable [facility] Unavailable Unavailable [facility], [facility] PETTEY, PETTEY Unavailable Unavailable [facility] Unavailable [facility] BRYANT, BRYANT Unavailable Unavailable WELLS SHA, GALEN SHA Unavailable Unavailable Purpose Continuity of Care Document - 07-28-2013 through 2016 Problems Code Diagnosis DOS Provider Status J189 PNEUMONIA 09-19-2016 ST UNSPECIFIED [facility]GANISM [facility] Z131 ENCOUNTER 09-19-2016 [facility] SCREENING HEALTHCARE FOR EDGE DIABETES MELLITUS [id number] ENCOUNTER 09-19-2016 [facility] SCREENING HEALTHCARE FOR LIPOID EDGE DISORDERS E785 HYPERLIPIDE 09-07-2016 [facility] UNSPECIFIED E876 HYPOKALEMIA 09-07-2016 [facility] I10 ESSENTIAL 09-07-2016 [facility] HYPERTENSIO N I160 HYPERTENSIV 09-07-2016 [facility]ENCY COMM[facility]TI[facility] HOSPITA I161 HYPERTENSIV 09-07-2016 [facility] E EMERGENCY CARDIOLOGY 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 J181 LOBAR 09-07-2016 [facility] PNEUMONIA N EMERGENCY UNSPECIFIED PHYS ORGANISM J90 PLEURAL 09-07-2016 [facility] EFFUSION COMMUNTIY NOT HOSPITA ELSEWHERE CLASSIFIED N179 ACUTE 09-07-2016 [facility] FAILURE HOSPITA UNSPECIFIED N289 DISORDER OF 09-07-2016 [facility] AND N EMERGENCY URETER PHYS UNSPECIFIED R042 HEMOPTYSIS 09-07-2016 [facility] SHORTNESS 09-07-2016 [facility] OF BREATH N EMERGENCY PHYS R0902 HYPOXEMIA 09-07-2016 [facility] HOSPITA R6520 SEVERE 09-07-2016 [facility] SEPSIS N EMERGENCY WITHOUT PHYS SEPTIC SHOCK J180 BRONCHOPNEU 09-06-2016 [facility] UNSPECIFIED IMAGING ASS ORGANISM J0120 ACUTE 08-26-2016 [facility] SINUS[facility]IS INC UNSPECIFIED R51 HEADACHE 08-26-2016 [facility] INC Z720 TOBACCO USE 08-26-2016 [facility] [id number] PAIN IN 07-19-2016 [facility] LEFT PHYSICIANS SHOULDER GROUP 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 5920 CALCULUS OF 03-03-2014 [facility] 73358 VOMITING 03-03-2014 [place] [facility] 12746 DIARRHEA 03-03-2014 [facility] 4439 UNSPECIFIED 02-06-2014 [place] PERIPHERAL [facility] VASCULAR IMAGING ASS DISEASE 05344 PAIN IN 02-06-2014 [place] JOINT MEDICAL PELVIC IMAGING ASS REGION AND THIGH 7295 PAIN IN 02-06-2014 [place] SOFT MEDICAL TISSUES OF IMAGING ASS LIMB 22160 CRAMP OF 02-06-2014 [facility] LIMB N EMERGENCY PHYS 7820 DISTURBANCE 02-06-2014 [place] OF SKIN MEDICAL SENSATION IMAGING ASS 7862 COUGH 02-06-2014 [facility] 23913 CHEST PAIN 02-06-2014 [facility] UNSPECIFIED [facility] IM[facility]ING ASS 90525 OTHER CHEST 02-06-2014 [facility] PAIN N EMERGENCY PHYS 4659 ACUTE URIS 08-25-2013 [facility] OF N EMERGENCY UNSPECIFIED PHYS SITE 99445 SHORTNESS 08-25-2013 [facility] OF BREATH N EMERGENCY [...] ia de te s n re d AM 68 05 06 30 30 00 OK Ac LO 64 -3 -3 .0 00 L- ti DI 50 1- 0- 00 07 MA ve PI 51 20 20 49 RT NE 65 17 17 09 4 94 PH BE AR SY MA LA CY TE #5 10 91 MG TA B IP 00 05 06 90 8 00 OK Ac RA 48 -3 -3 .0 00 L- ti T- 70 1- 0- 00 07 MA ve AL 20 20 20 49 RT BU 10 17 17 09 T 3 96 PH 0. AR 5- MA 3( CY 2. 5) #5 91 MG /3 ML LE 55 05 06 7. 7 00 [facility] VO 11 -3 -3 00 00 L- ti FL 10 1- 0- 0 07 MA ve OX 28 20 20 49 RT AC 13 17 17 09 IN 0 97 PH AR 75 MA 0 CY MG #5 TA 91 BL ET IS 13 05 06 30 10 00 [facility] OS 66 -3 -3 .0 00 L- ti OR 80 1- 0- 00 07 MA ve BI 10 20 20 49 RT DE 40 17 17 10 1 11 PH MN AR MA ER CY 30 #5 91 MG TA BL ET ME 59 05 06 21 6 00 OK Ac TH 74 -3 -3 .0 00 L- ti YL 60 1- 0- 00 07 MA ve IL 00 20 20 49 RT ED 10 17 17 10 NI 3 40 PH SO AR LO MA NE CY 4 #5 MG 91 DO SE PK VE 00 05 06 18 17 00 OK Ac NT 17 -2 -3 .0 00 L- ti OL 30 5- 0- 00 07 MA ve IN 68 20 20 48 RT 22 17 17 98 HF 0 64 PH A AR 90 MA CY MC G #5 IN 91 SIFUENTES LE R BE 68 05 06 15 5 00 OK Ac NZ 38 -2 -3 .0 00 L- ti ON 20 5- 0- 00 07 MA ve AT 24 20 20 48 RT AT 70 17 17 98 E 1 65 PH 10 AR 0 MA MG CY CA #5 PS 91 UL E KL 66 05 06 20 10 00 OK Ac OR 75 -2 -3 .0 00 L- ti -C 80 5- 0- 00 07 MA ve ON 19 20 20 48 RT 09 17 17 98 M2 2 66 PH 0 AR TA MA BL CY ET #5 91 HY 68 05 06 [address] 64 -3 -3 .0 00 L- ti OC 50 1- 0- 00 07 MA ve HL 51 20 20 49 RT OR 05 17 17 09 OT 4 90 PH HI AR AZ MA ID CY E 25 #5 91 MG TA B CL 29 05 06 60 30 00 OK Ac ON 30 -3 -3 .0 00 L- ti ID 00 1- 0- 00 07 MA ve IN 13 20 20 49 RT E 50 17 17 09 HC 1 92 PH L AR 0. MA 1 CY MG #5 TA 91 BL ET CE 68 05 06 14 14 00 OK Ac FD 18 -1 -1 .0 00 L- ti IN 00 3- 6- 00 07 MA ve IR 71 20 20 48 RT 16 17 17 76 30 0 79 PH 0 AR MG MA CY CA PS #5 UL 91 E BU 00 05 06 30 5 00 OK Ac TA 59 -1 -1 .0 00 L- ti LB 12 3- 6- 00 04 MA ve -A 64 20 20 53 RT CE 00 17 17 03 TA 1 39 PH MD AR N- MA CA CY FF #5 50 91 -3 00 -4 0 MU 63 05 06 40 20 00 [facility] CI 82 -1 -1 .0 00 L- ti NE 40 4- 6- 00 08 MA ve X 00 20 20 83 RT ER 83 17 17 94 4 40 PH 60 AR 0 MA MG CY TA #5 BL 91 ET CY 68 03 04 24 8 00 OK Ac CL 64 -2 -2 .0 00 L- ti OB 50 9- 8- 00 07 MA ve EN 51 20 20 47 RT ZA 89 17 17 93 IL 0 83 PH IN AR E MA 10 CY MG #5 91 TA BL ET ME 59 03 04 21 6 00 OK Ac TH 74 -2 -2 .0 00 L- ti YL 60 9- 8- 00 07 MA ve IL 00 20 20 47 RT ED 10 17 17 93 NI 3 84 PH SO AR LO MA NE CY 4 #5 MG 91 DO SE PK NA 65 03 04 60 30 00 OK Ac IL 16 -2 -2 .0 00 L- ti OX 20 9- 8- 00 07 MA ve EN 19 20 20 47 RT 01 17 17 93 50 1 85 PH 0 AR MG MA CY TA BL #5 ET 91 Procedures Procedure DOS Code Location Performer Comment COMPREHEN 57686 [facility] SIVE 7 YAN YAN METABOLIC PANEL HEALTHCAR HEALTHCAR E ARTURO MORRIS COLLECTIO 53377 [facility] HEALTHCAR URE E ARTURO MORRIS LIPID 96357 [facility] PANEL 7 YAN YAN HEALTHCAR HEALTHCAR E ARTURO E ARTURO HEMOGLOBI 63063 [facility] N 7 YAN YAN GLYCOSYLA CATE A1C HEALTHCAR HEALTHCAR E ARTURO E ARTURO BLOOD 20100 [facility]AUTO HEALTHCAR HEALTHCAR DIFRNTL E ARTURO MORRIS WBC SBSQ 07288 [facility] 7 N CARE/DAY CARDIOLOG 25 Y MIN[address] SBSQ 45813 [facility] 7 N CARE/DAY CARDIOLOG 35 [address]BS[address] 32224 [facility] 7 N CARE/DAY CARDIOLOG 35 Y MINUTES INITIAL 66725 [facility] IN[facility]IENT 7 N CONSULT CARDIOLOG NEW/ESTAB Y PT 110 MIN ECHO 46150 [facility] TTHRC R-T 7 N 2D CARDIOLOG W/WOM-MOD Y E COMPL SPEC&COLR D RADIOLOGI 95686 [facility] C EXAM 7 MEDICAL CHEST 2 IMAGING VIEWS ASS FRONTAL&L ATERAL BLOOD 08751 [facility] COUNT 7 [facility] COMPLETE INC INC AUTO&[place] [address] [facility] INFUSION 7 MEM [facility] THERAPY/P INC INC ROPHYLAXI S /DX 1ST TO 1 HR THERAPEUT 00581 [facility] IC 7 [facility] INJECTION INC INC IV PUSH EACH NEW DRUG RADIOLOGI 87864 [facility] C EXAM 7 MEM [facility] CHEST 2 INC INC VIEWS FRONTAL&L ATERAL COMPREHEN 63501 [facility] SIVE 7 [facility] [place] [address] [facility] INFUSION 7 [facility] THERAPY INC [place] [address] [facility] HEAD/BRAI 7 [facility] N W/[place] [address] [facility] MAGNESIUM 7 MEM H[facility]P [facility] INC INC ARTHROCEN 75797 [facility] JOHNATHAN ARTEAGAIS 7 PHYSICIAN ASPIR&/IN S GROUP J MAJOR JT/BURSA W/O US RADEX 22811 [place] [facility] ALL SHOULDER 5 MEDICAL COMPLETE IMAGING MINIMUM 2 ASS VIEWS RADEX ABD 53884 [place] [facility] COMPL 4 MEDICAL LESA AQT ABD IMAGING W/S/E/D ASS VIEWS [address] [place] [address] [facility] ROUTINE 4 JENNIFER ECG EMERGENCY W/LEAST PHYS 12 LDS I&R ONLY RADIOLOGI 40216 [place] [facility] C 4 MEDICAL LESA EXAMINATI IMAGING ON CHEST ASS SINGLE VIEW FRONTAL DUP-SCAN 63540 [place] [facility] XTR VEINS 4 MEDICAL LESA IMAGING UNILATERA ASS L/LIMITED STUDY RADEX HIP 79056 [place] [facility] 4 MEDICAL LESA UNILATERA IMAGING L ASS COMPLETE MINIMUM 2 VIEWS NON-INVAS 72689 [place] [facility] MICHELLE 4 MEDICAL MARTIN PHYSIOLOG IMAGING IC STUDY ASS EXTREMITY 3 LEVLS SIMPLE 92111 [facility] REPAIR 4 JENNIFER JACQUELYN SCALP/NEC EMERGENCY K/AX/CRUZ PHYS T/TRUNK 2.5CM/< Encounters Encounter Start End Date Code Location Performer Type Date [facility] ST - 7 7 [facility] 7 7 N INPATIENT COMMUNTIY HOSPITA EMERGENCY 49434 [facility] CELLAROSI DEPT 7 7 JENNIFER - YORBA VISIT EMERGENCY HIGH PHYS SEVERITY& THREAT [facility] - 7 7 [facility] 88262 [facility] 7 7 [facility] INC T VISIT HIGH/URGE NT SEVERITY OFFICE 36754 [facility] PETTEY OUTPATIEN 7 7 PHYSICIAN T NEW 20 S GROUP MINUTES OFFICE 55924 [facility] 7 7 [facility] T VISIT 5 INC MINUTES [facility]OSPITAL [facility] - 7 7 [facility] OUTPATIEN INC T EMERGENCY 90651 [facility] DEPT 4 4 JENNIFER VISIT EMERGENCY HIGH PHYS SEVERITY& THREAT [facility] EMERGENCY 85620 [facility] DEPT 4 4 JENNIFER BRO VISIT EMERGENCY HIGH PHYS SEVERITY& THREAT [facility]J EMERGENCY 41489 [facility] 4 4 JENNIFER JACQUELYN [facility] EMERGENCY T VISIT PHYS LOW/MODER SEVERITY
--- OUTSIDE RECORDS SUMMARY | 2016-10-18 13:11 | External Medical Summary Rpt ---
Demographics Preferred Language Ecuadorean Marital Status Unknown Jain Affiliation Unknown Race Unknown Ethnic Group Unknown Author Author , Organization [employer] Address Unknown Phone Unavailable Purpose Continuity of Care Document - through 2016 Immunization No patient found.
--- OUTSIDE RECORDS SUMMARY | 2016-10-18 13:11 | External Medical Summary Rpt ---
Author Author , Organization [employer] Address Unknown Phone Unavailable Care Team Providers Care Human Resources Admin Name Role Phone HARDING BRO, HARDING Unavailable Unavailable BRO BEINEKE, BEINEKE Unavailable Unavailable BEINEKE MARTIN, BEINEKE Unavailable Unavailable MARTIN JOY ALL, JOY ALL Unavailable Unavailable CELLAROSI - YORBA, Unavailable Unavailable CELLAROSI - YORBA OXANA LESA, Unavailable Unavailable OXANA LESA DO JACQUELYN, DO Unavailable Unavailable JACQUELYN [facility] Unavailable Unavailable [facility], [facility] Unavailable [facility]available INC, [facility], Unavailable Unavailable [facility] Unavailable Unavailable [facility], [facility] PETTEY, PETTEY Unavailable Unavailable [facility] Unavailable Unavailable [facility] BRYANT, BRYANT Unavailable Unavailable WELLS SHA, GALEN SHA Unavailable Unavailable Purpose Continuity of Care Document - 07-28-2013 through 2016 Problems Code Diagnosis DOS Provider Status J189 PNEUMONIA 09-19-2016 ST UNSPECIFIED Y[facility] ORGANISM [facility] Z131 ENCOUNTER 09-19-2016 [facility] SCREENING HEALTHCARE FOR EDGE DIABETES MELLITUS L53466 ENCOUNTER 09-19-2016 [facility] SCREENING HEALTHCARE FOR LIPOID EDGE DISORDERS E785 HYPERLIPIDE 09-07-2016 [facility] UNSPECIFIED E876 HYPOKALEMIA 09-07-2016 [facility] I10 ESSENTIAL 09-07-2016 [facility] HYPERTENSIO N I160 HYPERTENSIV 09-07-2016 [facility] E [facility]ENC[facility] COMMUNTIY HOSPITA I161 HYPERTENSIV 09-07-2016 [facility] E EMERGENCY CARDIOLOGY 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 J181 LOBAR 09-07-2016 [facility] PNEUMONIA N EMERGENCY UNSPECIFIED PHYS ORGANISM J90 PLEURAL 09-07-2016 [facility] EFFUSION COMMUNTIY NOT HOSPITA ELSEWHERE CLASSIFIED N179 ACUTE 09-07-2016 [facility] FAILURE HOSPITA UNSPECIFIED N289 DISORDER OF 09-07-2016 [facility] AND N EMERGENCY URETER PHYS UNSPECIFIED R042 HEMOPTYSIS 09-07-2016 [facility] R[facility] SHORTNESS 09-07-2016 [facility] OF BREATH N EMERGENCY PHYS R0902 HYPOXEMIA 09-07-2016 [facility] HOSPITA R6520 SEVERE 09-07-2016 [facility] SEPSIS N EMERGENCY WITHOUT PHYS SEPTIC SHOCK J180 BRONCHOPNEU 09-06-2016 [facility] UNSPECIFIED IMAGING ASS ORGANISM J0120 ACUTE 08-26-2016 [facility] SINUSITIS INC UNSPECIFIED R51 HEADACHE 08-26-2016 [facility] INC Z720 TOBACCO USE 08-26-2016 [facility] HOSP INC [id number] PAIN IN 07-19-2016 [facility] LEFT PHYSICIANS SHOULDER GROUP 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 5920 CALCULUS OF 03-03-2014 [facility] 23766 VOMITING 03-03-2014 [facility] 04429 DIARRHEA 03-03-2014 [facility] 4439 UNSPECIFIED 02-06-2014 [place] PERIPHERAL [facility]ICAL VASCULAR IMAGING ASS DISEASE 30219 PAIN IN 02-06-2014 [place] JOINT MEDICAL PELVIC IMAGING ASS REGION AND THIGH 7295 PAIN IN 02-06-2014 [place] SOFT MEDICAL TISSUES OF IMAGING ASS LIMB 47766 CRAMP OF 02-06-2014 [facility] LIMB N EMERGENCY PHYS 7820 DISTURBANCE 02-06-2014 [place] OF SKIN MEDICAL SENSATION IMAGING ASS 7862 COUGH 02-06-2014 [facility] 30638 CHEST PAIN 02-06-2014 [place] UNSPECIFIED [facility]ICAL IM[facility]ING ASS 44936 OTHER CHEST 02-06-2014 [facility] PAIN N EMERGENCY PHYS 4659 ACUTE URIS 08-25-2013 [facility] OF N EMERGENCY UNSPECIFIED PHYS SITE 68125 SHORTNESS 08-25-2013 [facility] OF BREATH N EMERGENCY [...] AM 68 05 06 30 30 00 AL Ac LO 64 -3 -3 .0 00 L- ti DI 50 1- 0- 00 07 MA ve PI 51 20 20 49 RT NE 65 17 17 09 4 94 PH BE AR SY MA LA CY TE #5 10 91 MG TA B IP 00 05 06 90 8 00 AL Ac RA 48 -3 -3 .0 00 [...] ME 59 05 06 21 6 00 AL Ac TH 74 -3 -3 .0 00 L- ti YL 60 1- 0- 00 07 MA ve UT 00 20 20 49 RT ED 10 17 17 10 NI 3 40 PH SO AR LO MA NE CY 4 #5 MG 91 DO SE PK VE 00 05 06 18 17 00 AL Ac NT 17 -2 -3 .0 00 L- ti OL 30 5- 0- 00 07 MA ve IN 68 20 20 48 RT 22 17 17 98 HF 0 64 PH A AR 90 MA CY MC G #5 IN 91 SIFUENTES LE R BE 68 05 06 15 5 00 AL Ac NZ 38 -2 -3 .0 00 L- ti ON 20 5- 0- 00 07 MA ve AT 24 20 20 48 RT AT 70 17 17 98 E 1 65 PH 10 AR 0 MA MG CY CA #5 PS 91 UL E KL 66 05 06 20 10 00 AL Ac OR 75 -2 -3 .0 00 L- ti -C 80 5- 0- 00 07 MA ve ON 19 20 20 48 RT 09 17 17 98 M2 2 66 PH 0 AR TA MA BL CY ET #5 91 HY 68 05 06 30 [address] 64 -3 -3 .0 00 L- ti OC 50 1- 0- 00 07 MA ve HL 51 20 20 49 RT OR 05 17 17 09 OT 4 90 PH HI AR AZ MA ID CY E 25 #5 91 MG TA B CL 29 05 06 60 30 00 AL Ac ON 30 -3 -3 .0 00 L- ti ID 00 1- 0- 00 07 MA ve IN 13 20 20 49 RT E 50 17 17 09 HC 1 92 PH L AR 0. MA 1 CY MG #5 TA 91 BL ET CE 68 05 06 14 14 00 AL Ac FD 18 -1 -1 .0 00 L- ti IN 00 3- 6- 00 07 MA ve IR 71 20 20 48 RT 16 17 17 76 30 0 79 PH 0 AR MG MA CY CA PS #5 UL 91 E BU 00 05 06 30 5 00 AL Ac TA 59 -1 -1 .0 00 L- ti LB 12 3- 6- 00 04 MA ve -A 64 20 20 53 RT CE 00 17 17 03 TA 1 39 PH NE AR N- MA CA CY FF #5 [...] CY 68 03 04 24 8 00 AL Ac CL 64 -2 -2 .0 00 L- ti OB 50 9- 8- 00 07 MA ve EN 51 20 20 47 RT ZA 89 17 17 93 UT 0 83 PH IN AR E MA 10 CY MG #5 91 TA BL ET ME 59 03 04 21 6 00 AL Ac TH 74 -2 -2 .0 00 L- ti YL 60 9- 8- 00 07 MA ve UT 00 20 20 47 RT ED 10 17 17 93 NI 3 84 PH SO AR LO MA NE CY 4 #5 MG 91 DO SE PK NA 65 03 04 60 30 00 AL Ac UT 16 -2 -2 .0 00 L- ti OX 20 9- 8- 00 07 MA ve EN 19 20 20 47 RT 01 17 17 93 50 1 85 PH 0 AR MG MA CY TA BL #5 ET 91 Procedures Procedure DOS Code Location Performer Comment COMPREHEN 76652 [facility] SIVE 7 YAN YAN METABOLIC PANEL HEALTHCAR HEALTHCAR E ARTURO MORRIS COLLECTIO 11064 [facility] N VENOUS 7 [facility] BLOOD VENIPUNCT HEALTHCAR HEALTHCAR URE E ARTURO MORRIS LIPID 46211 [facility] PANEL 7 YAN YAN HEALTHCAR HEALTHCAR E ARTURO E ARTURO HEMOGLOBI 58448 [facility] N 7 YAN YAN GLYCOSYLA CATE A1C HEALTHCAR HEALTHCAR E ARTURO E ARTURO BLOOD 87684 [facility] COUNT [facility] COMPLETE AUTO&AUTO HEALTHCAR HEALTHCAR DIFRNTL E ARTURO MORRIS WBC SBSQ 77023 [facility] 7 N CARE/DAY CARDIOLOG 25 Y MINUTES SBSQ 20869 [facility] 7 N CARE/DAY CARDIOLOG 35 Y MINUTES SBSQ 00517 [facility] 7 N CARE/DAY CARDIOLOG 35 Y MINUTES INITIAL 13112 [facility] INPATIENT 7 N CONSULT CARDIOLOG NEW/ESTAB Y PT 110 MIN ECHO 47573 [facility] TTHRC R-T 7 N 2D CARDIOLOG W/WOM-MOD Y E COMPL SPEC&COLR D RADIOLOGI 70740 [facility] C EXAM 7 MEDICAL CHEST 2 IMAGING VIEWS ASS FRONTAL&L ATERAL BLOOD 70336 [facility] COUNT 7 [facility] COMPLETE INC INC AUTO&[place] [address] [facility] INFUSION 7 [facility] THERAPY/P INC INC ROPHYLAXI S /DX 1ST TO 1 HR THERAPEUT 62662 [facility] IC 7 [facility] INJECTION INC INC IV PUSH EACH NEW DRUG RADIOLOGI 48921 [facility] C EXAM 7 [facility] CHEST 2 INC INC VIEWS FRONTAL&L ATERAL COMPREHEN 18055 [facility] SIVE 7 [facility] [place] [address] [facility] INFUSION 7 [facility] THERAPY INC [place] [address] [facility] HEAD/BRAI 7 [facility] N W/[place] [address] [facility] MAGNESIUM 7 [facility] H[facility]P [facility] INC INC ARTHROCEN 50558 [facility] JOHNATHAN ARTEAGAIS 7 PHYSICIAN ASPIR&/IN S GROUP J MAJOR JT/BURSA W/O US RADEX 14443 [place] [facility] ALL SHOULDER 5 MEDICAL COMPLETE IMAGING MINIMUM 2 ASS VIEWS RADEX ABD 77048 [place] [facility] COMPL 4 MEDICAL LESA AQT ABD IMAGING W/S/E/D ASS VIEWS 1 VIEW CH ECG 35912 [facility] ROUTINE 4 JENNIFER ECG EMERGENCY W/LEAST PHYS 12 LDS I&R ONLY RADIOLOGI 75183 [place] [facility] C 4 MEDICAL LESA EXAMINATI IMAGING ON CHEST ASS SINGLE VIEW FRONTAL DUP-SCAN 10406 [place] [facility] XTR VEINS 4 MEDICAL LESA IMAGING UNILATERA ASS L/LIMITED STUDY RADEX HIP 52507 [place] [facility] 4 MEDICAL LESA UNILATERA IMAGING L ASS COMPLETE MINIMUM 2 VIEWS NON-INVAS 63990 [place] [facility] MICHELLE 4 MEDICAL MARTIN PHYSIOLOG IMAGING IC STUDY ASS EXTREMITY 3 LEVLS SIMPLE 51833 [facility] REPAIR 4 JENNIFER JACQUELYN SCALP/NEC EMERGENCY K/AX/CRUZ PHYS T/TRUNK 2.5CM/< Encounters Encounter Start End Date Code Location Performer Type Date [facility] ST - 7 7 YAN [facility] 7 7 N INPATIENT COMMUNTIY HOSPITA EMERGENCY 95106 [facility] CELLAROSI DEPT 7 7 JENNIFER - YORBA VISIT EMERGENCY HIGH PHYS SEVERITY& THREAT [facility] KRIS - 7 7 [facility] 95393 [facility] 7 7 [facility] INC T VISIT HIGH/URGE NT SEVERITY OFFICE 82125 [facility]TEY OUTPATIEN 7 7 PHYSICIAN T NEW 20 S GROUP MINUTES OFFICE 14137 [facility] 7 7 [facility] T VISIT 5 INC MINUTES [facility]PITAL [facility] - 7 7 [facility] OUTPATIEN INC T EMERGENCY 70779 [facility] DE[facility] 4 4 JENNIFER VISIT EMERGENCY HIGH PHYS SEVERITY& THREAT [facility] EMERGENCY 45546 [facility] DEPT 4 4 JENNIFER BRO VISIT EMERGENCY HIGH PHYS SEVERITY& THREAT [facility]J EMERGENCY 09170 [facility] 4 4 JENNIFER JACQUELYN [facility] EMERGENCY T VISIT PHYS LOW/MODER SEVERITY
--- OUTSIDE RECORDS SUMMARY | 2016-10-18 13:11 | External Medical Summary Rpt ---
Author Author CATINARAMESH Quinn, [employer] Address Unknown Phone Unavailable [...] leukocy jenni in Blood by Manual count [place] 1 No % No No Sep 19 [...] in 4:14 PM source source data data Yadkin# 2.6 0.0 - x10(3)/ High No Brian [...] or Plasma RESU LTS CALLED TO: LEWIS De León 09/06/16 Adeola Martinez Sodium 136 [...]
--- NOTE | 2016-10-18 13:52 | RADIOLOGY REPORT PS360 ---
CT HEAD W/O CONTRAST HISTORY: Severe headache HEADACHE ORDERING PHYSICIAN: Pablo Alfredo MD PATIENT AGE: 46 years COMPARISON: 08/26/2016 TECHNIQUE: Axial images obtained without contrast. Brain and bone windows reviewed. FINDINGS: No midline shift, mass effect, intracranial hemorrhage, hydrocephalus, or extra-axial fluid collection is evident. The calvarium has an unremarkable appearance. No mastoid effusion. Mild mucosal thickening of the ethmoid sinuses on the left. There is increased density within the external auditory canal on both sides. Etiology indeterminate. Please correlate clinically IMPRESSION: 1. No acute intracranial pathology. 2. Opacified bilateral external auditory canals
[2016-10-18 14:02] LABS: LYMPH # 1.5 K/mm3 (0.7-4.5); LYMPH % 9.3 % (10-50)
[2016-10-18 14:12] LABS: HEMOGLOBIN 16.9 g/dL (14.1-18.0)
[2016-10-18 14:48] LABS: NEUTROPHILS 78 % (42-76)
[2016-10-18 18:54] VITALS: BP 170/100
== END 2016-10-18 18:58 | disposition short-term general hospital (02) ==
LOC: ER 12:41
PROVIDERS: Emergency Medicine
DX: R51 Headache (principal); I10 Essential (primary) hypertension
CPT/HCPCS: J2405